=== PATIENT | female | born 1955 | race Caucasian/White ===

== ENCOUNTER 2016-07-01 13:17 | Emergency (ER) | payer MEDICAID ==
[~2016-07-01] VITALS: Ht 162.6 cm; Wt 61.2 kg
[~2016-07-01 13:17] MED LIST: ACHD5005 PO; ALBU8.5H4 IH; AMIT75TA2 PO; AZIT-21 PO; CYCL10TA9 PO; DIAZ-345 PO; DIAZ10TA PO; DOXE10CA PO; HYDR-34 PO; HYDR-3583 PO; HYDR1CAP2 PO; NAPR-243 PO; OXYC-12 PO; PARO20TA57 PO; PARO40TA PO; PARO40TA47 PO; PRD20T PO; SULF1TAB38 PO; TRAZ150T42 PO
--- NOTE | 2016-07-01 13:59 | Diagnostic Imaging Report ---
EXAMINATION: PA and lateral views of the chest. INDICATION: Left rib pain. FINDINGS: The lungs appear hyperinflated with bibasilar atelectasis. The heart size is normal. No effusion or pneumothorax is seen. An old posterolateral left 8th rib fracture is seen. There is mild right convexity scoliosis in the thoracic spine. An anchor at the right humeral head is seen. IMPRESSION: COPD. Bibasilar atelectasis. Dictated by: Dictated on workstation # [id number]
--- NOTE | 2016-07-01 14:14 | ED Chest Pain ---
General Chief Complaint: Chest Wall/Rib Pain Stated Complaint: SOA Nursing Triage Note: Pt noticed left lower chest wall pain after having sex last night. Pt reports having intercourse in missionary position on the hard floor. Hx of COPD. Nursing Sepsis Screen: No Definite Risk Source: patient History of Present Illness Time seen by provider: 13:40 Initial Comments C/O LEFT RIB PAIN SINCE 2300 LAST PM STATES SHE AND WERE HAVING INTERCOURSE ON THE FLOOR LAST PM AND AFTERWARD, BEGAN TO HAVE SEVERE PAIN IN LEFT LOWER RIB AREA NO SHORTNESS OF BREATH, JUST HURTS TO BREATHE HAS COPD AND HAS HAD "POPPED AND PULLED RIBS" FROM COUGHING, MOVING, ETC IN THE PAST HAD SAME THING LAST WEEK ON THE RIGHT SIDE AND WENT TO [facility] AND WAS GIVEN RX FOR TRAMADOL, PT STATES IT DID NOT HELP AT ALL. HAS NOT TAKEN ANYTHING FOR PAIN TODAY PCP:[facility] Allergies and Home Medications Allergies Coded Allergies: Penicillins (Unverified Allergy, Mild, 11/28/08) Home Medications Lidocaine 1 Each Adh..patch, 1 EACH TP DAILY PRN, #7 Prescribed by: OVIDIO LR on 07/01/16 1416 Methylprednisolone 4 Mg Tab.ds.pk, 4 MG PO UD, #1 Prescribed by: OVIDIO LR on 07/01/16 1416 Paroxetine HCl 40 Mg Tablet, 40 MG PO DAILY, #30 Ref 0 Prescribed by: KARLI MURDOCK on 11/25/15 1454 Review of Systems Constitutional: no symptoms reported EENTM: No Symptoms Reported Respiratory: See HPI Cardiovascular: See HPI, Chest Pain Gastrointestinal: No Symptoms Reported Genitourinary: No Symptoms Reported Musculoskeletal: see HPI, No back pain Skin: no symptoms reported Psychiatric/Neurological: No Symptoms Reported Endocrine: No Symptoms Reported Hematologic/Lymphatic: No Symptoms Reported Past Avlhjjk-Klhtyb-Pkitkf Hx Patient Social History Alcohol Use: Rarely Uses Recreational Drug Use: No Smoking Status: Current Everyday Smoker Type Used: Cigarettes Recent Foreign Travel: No Contact w/Someone Who Travel: No Recent Infectious Disease Expo: No Recent Hopitalizations: Yes Immunizations Up To Date Date of Pneumonia Vaccine: Nov 03, 2011 Date of Influenza Vaccine: Nov 03, 2011 Surgeries HX Surgeries: Yes (RIGHT ROTATOR CUFF REPAIR; LEFT KNEE SCOPE X 2) Surgeries: Appendectomy, Hysterectomy, Orthopedic Respiratory Hx Respiratory Disorders: Yes Respiratory Disorders: Chronic Bronchitis, COPD Cardiovascular Hx Cardiac Disorders: No Neurological Hx Neurological Disorders: Yes Neurological Disorders: Headaches /Migraines Reproductive System Hx Reproductive Disorders: No Genitourinary Hx Genitourinary Disorders: No Gastrointestinal Hx Gastrointestinal Disorders: Yes (DIARRHEA) Gastrointestinal Disorders: Chronic Diarrhea Musculoskeletal Hx Musculoskeletal Disorders: Yes ([id number]; RIGHT ROTATOR CUFF SURGERY; LEFT KNEE SCOPE X 2) Musculoskeletal Disorders: Arthritis Endocrine Hx Endocrine Disorders: No HEENT HX ENT Disorders: Yes (ONLY HAS 8 TEETH) Cancer Hx Cancer: No Psychosocial Hx Psychiatric Problems: Yes Behavioral Health Disorders: Anxiety Integumentary HX Skin/Integumentary Disorder: Yes (CELLULITIS OF LEGS) Blood Transfusions Hx Blood Disorders: No Physical Exam Vital Signs Vital Sign - Last 12Hours 07/01/16 13:44 Temp 97.5 Pulse 78 B/P (MAP) 137/65 O2 Delivery Room Air Capillary Refill : Less Than 3 Seconds General Appearance: WD/WN, Anxious, Other (SOMEWHAT DRAMATIC, HOLDING RIGHT LOWER RIB AREA) HEENT: Other (POOR DENTITION, MULTIPLE MISSING TEETH) Neck: Normal Inspection Respiratory: Normal Breath Sounds, No Accessory Muscle Use, No Respiratory Distress, Other (SPLINTING LEFT LOWER RIBS--VERY TENDER TO LEFT LOWER/ANTERIOR CHEST/RIB AREA. NO EXTERNAL EVIDENCE OF TRAUMA. NO CREPITANCE OR SUB Q AIR) Cardiovascular: Regular Rate, Rhythm, No Edema, No Murmur, Normal Peripheral Pulses Gastrointestinal: No Pulsatile Mass, Non Tender, Soft Extremity: Normal Inspection Neurologic/Psychiatric: Alert, Oriented x3, No Motor/Sensory Deficits, property administrator II- XII Norm as Tested Skin: Normal Color, Warm/Dry, No Rash, Other (NO EXTERNAL EVIDENCE OF TRAUMA) Progress/Results/Core Measures Results/Orders My Orders Orders - OVIDIO LR DO Chest Pa/Lat (2 View) (07/01/16 13:41) Ketorolac Injection (Toradol Injection) (07/01/16 14:15) Vital Signs/I&O Vital Sign - Last 12Hours 07/01/16 13:44 Temp 97.5 Pulse 78 B/P (MAP) 137/65 O2 Delivery Room Air Blood Pressure Mean: 89 Diagnostic Imaging Comments CXR--OLD LEFT 8TH RIB FRACTURE, PER RADIOLOGIST REPORT @ 1404 Reviewed: Reviewed by Me Departure Impression Impression: Primary Impression: Left-sided chest wall pain Additional Impressions: Contusion of rib on left side COPD (chronic obstructive pulmonary disease) Disposition: HOME, SELF-CARE Condition: Stable Departure-Patient Inst. Referrals: [facility] (PCP/Family) Primary Care Physician Patient Instructions: Bruised Rib (DC), COPD Including Emphysema (DC) Add. Discharge Instructions: ALTERNATE ICE AND HEAT TO SORE AREA AT 20 MINUTE INTERVALS ACTIVITIES TOLERATED FOLLOW UP WITH [facility] IN 1 WEEK IF NO BETTER All discharge instructions reviewed with patient and/or family. Voiced understanding. Scripts Lidocaine (Lidocaine) 1 Each Adh..patch 1 EACH TP DAILY PRN, #7 PATCH Prov: OVIDIO LR DO 07/01/16 Methylprednisolone (Medrol) 4 Mg Tab.ds.pk 4 MG PO UD, #1 PKG Prov: OVIDIO LR DO 07/01/16 OVIDIO LR DO July 01, 2016 14:14
[2016-07-01] MEDS ORDERED: KETOROLAC 60 MG/2 ML VIAL IM ONE (14:15)
[2016-07-01] MEDS ORDERED: METH4TAB PO (14:16)
[2016-07-01] MEDS ORDERED: LIDO700A45 TP (14:16)
[2016-07-01 14:30] VITALS: BP 132/60
== END 2016-07-01 14:30 | disposition home or self-care (01) ==
LOC: EDUNIT# 13:17 → ER 13:18
DX: S20.212A Contusion of left front wall of thorax, initial encounter (principal); J44.9 Chronic obstructive pulmonary disease, unspecified; F17.210 Nicotine dependence, cigarettes, uncomplicated; W50.0XXA Accidental hit or strike by another person, initial encounter; Y92.009 Unspecified place in unspecified non-institutional (private) residence as the place of occurrence of the external cause; Y99.8 Other external cause status
CPT/HCPCS: 71020; 96372; 99283

== ENCOUNTER → 2016-07-07 | Outpatient (CLI) | payer MEDICAID ==
[~2016-07-07] MED LIST changes: +LIDO700A45 TP; +METH4TAB PO
--- NOTE | 2016-07-08 08:30 | Diagnostic Imaging Report ---
Bilateral screening mammogram The current study was also evaluated with a Computer Aided Detection (CAD) system. Indication: Screening. No current complaints stated on the questionnaire. COMPARISON: 01/06/10. FINDINGS: The breasts are composed of heterogeneously dense parenchyma which may decrease mammographic sensitivity. There is no mass, architectural distortion or suspicious cluster of calcification. Allowing for technique and positional differences, no suspicious change is seen. IMPRESSION: No significant change. ACR BI-RADS Category 2: Benign findings. Result letter will be mailed to the patient. Note: At least 10% of breast cancer is not imaged by mammography. Dictated by: Dictated on workstation # [id number]
== END ==
LOC: RAD 13:38
PROVIDERS: ATTEND Nurse Practitioner Community Health
DX: Z12.31 Encounter for screening mammogram for malignant neoplasm of breast (principal)
CPT/HCPCS: 77067

== ENCOUNTER 2016-09-22 15:38 | Emergency (ER) | payer MEDICAID ==
[~2016-09-22] VITALS: Ht 160 cm; Wt 72.6 kg
[2016-09-22] MEDS ORDERED: HYDROcodone/APAP 7.5 MG/325 MG (LORTAB, LORCET PLUS) TABLET PO STA (15:53)
--- NOTE | 2016-09-22 15:57 | ED Upper Extremity ---
General Chief Complaint: Upper Extremity Stated Complaint: R SHOULDER INJ - FALL History of Present Illness Time seen by provider: 15:45 Initial Comments Patient tripped over an extension cord in her home, fell on an extended right arm. She's had previous rotator cuff surgery by Dr. Monsivais on the shoulder, 11-09. Onset: just prior to arrival Pain/Injury Location: right shoulder Method of Injury: fell Modifying Factors: Improves With Immobilization, Improves With Rest Allergies and Home Medications Allergies Coded Allergies: Penicillins (Unverified Allergy, Mild, 11/28/08) Home Medications Paroxetine HCl 40 Mg Tablet, 40 MG PO DAILY, #30 Ref 0 Prescribed by: KARLI MURDOCK on 11/25/15 8097 Constitutional: no symptoms reported, see HPI Respiratory: no symptoms reported, see HPI Cardiovascular: no symptoms reported, see HPI Musculoskeletal: see HPI, joint pain (right shoulder), muscle pain Psychiatric/Neurological: No Symptoms Reported, See HPI All Other Systems Reviewed Negative Unless Noted: Yes Past Zrhojdl-Rlavsp-Xpzscj Hx Patient Social History Alcohol Use: Denies Use Recreational Drug Use: No Smoking Status: Current Everyday Smoker Type Used: Cigarettes Recent Foreign Travel: No Contact w/Someone Who Travel: No Recent Hopitalizations: Yes Immunizations Up To Date Date of Pneumonia Vaccine: Nov 03, 2011 Date of Influenza Vaccine: Nov 03, 2011 Surgeries HX Surgeries: Yes (RIGHT ROTATOR CUFF REPAIR; LEFT KNEE SCOPE X 2) Surgeries: Appendectomy, Hysterectomy, Orthopedic Respiratory Hx Respiratory Disorders: Yes Respiratory Disorders: Chronic Bronchitis, COPD Cardiovascular Hx Cardiac Disorders: No Neurological Hx Neurological Disorders: Yes Neurological Disorders: Headaches /Migraines Reproductive System Hx Reproductive Disorders: No Genitourinary Hx Genitourinary Disorders: No Gastrointestinal Hx Gastrointestinal Disorders: Yes (DIARRHEA) Gastrointestinal Disorders: Chronic Diarrhea Musculoskeletal Hx Musculoskeletal Disorders: Yes ([id number]; RIGHT ROTATOR CUFF SURGERY; LEFT KNEE SCOPE X 2) Musculoskeletal Disorders: Arthritis Endocrine Hx Endocrine Disorders: No HEENT HX ENT Disorders: Yes (ONLY HAS 8 TEETH) Cancer Hx Cancer: No Psychosocial Hx Psychiatric Problems: Yes Behavioral Health Disorders: Anxiety Integumentary HX Skin/Integumentary Disorder: Yes (CELLULITIS OF LEGS) Blood Transfusions Hx Blood Disorders: No Reviewed Nursing Assessment Reviewed/Agree w Nursing PMH: Yes Physical Exam Vital Signs Vital Sign - Last 12Hours 09/22/16 15:50 Temp 98.1 Pulse 100 Resp 18 B/P (MAP) 143/97 Pulse Ox 95 Capillary Refill : General Appearance: WD/WN, no apparent distress Neck: non-tender, full range of motion, supple, normal inspection Cardiovascular: normal peripheral pulses, regular rate, rhythm, no murmur Respiratory: chest non-tender, lungs clear, normal breath sounds, no respiratory distress Back: normal inspection, no vertebral tenderness Shoulder: normal inspection, bone tenderness (proximal humerus), limited ROM, soft tissue tenderness (anterior right shoulder) Elbow/Forearm: normal inspection, non-tender, no evidence of injury, normal ROM , Right Wrist: Yes normal inspection, Yes non-tender, Yes no evidence of injury, Yes normal ROM Hand: normal inspection, non-tender, no evidence of injury, normal ROM, Right Neurologic/Psychiatric: no motor/sensory deficits, alert, normal mood/affect, oriented x 3 Skin: normal color, warm/dry Comments Exam of right shoulder showed limitation of motion secondary to pain, active elevation to 90 passive elevation to 100. Limited internal and neck sternal rotation of the shoulder. Negative apprehension maneuver negative Eyal sign, pain with impingement maneuver. No before meals joint tenderness and no pain in that area with cross body adduction. Biceps and triceps resisted strength V/V. pain with resisted external rotation. Progress/Results/Core Measures Results/Orders My Orders Orders - INES GUERRERO Shoulder, Right, 3 Views (09/22/16 15:53) Hydrocodone/Apap 7.5/325 Tab (Lortab 7. (09/22/16 15:53) Vital Signs/I&O Vital Sign - Last 12Hours 09/22/16 09/22/16 15:50 16:45 Temp 98.1 98.2 Pulse 100 87 Resp 18 16 B/P (MAP) 143/97 Pulse Ox 95 99 Progress Note : Time: 15:45 Progress Note Initial evaluation completed, we'll obtain x-rays of the right shoulder, hydrocodone 7.5/APAP 325mg one by mouth for pain. Will reevaluate. 1630 x-ray results reviewed with the patient no acute injuries noted. Sling applied to the right shoulder. Explained importance of removing the sling several times a day for gentle range of motion to the shoulder. Demonstrated exercises for the patient. She verbalized understanding of discharge instructions. All questions answered. Diagnostic Imaging Diagonstic Imaging: Xray Plain Films/CT/US/NM/MRI: other Comments NAME: DENIA TRINIDAD [facility] REC#: [id number] PT STATUS: REG ER : 1955 PHYSICIAN: INES GUERRERO ADMIT DATE: 09/22/16/ER Draft Date of Exam:09/22/16 SHOULDER, RIGHT, 3 VIEWS INDICATION: Fall. Pain. COMPARISON: None. FINDINGS: Four views of the right shoulder are obtained. No acute fracture, malalignment, or osseous destructive process is seen. The glenohumeral joint appears unremarkable. There are mild degenerative changes in the acromioclavicular joint. There are postoperative changes of the distal clavicle and in the humeral head. There are old healed lateral right rib fractures. IMPRESSION: No acute abnormality is seen. Degenerative and postoperative changes as described. Dictated on workstation # [id number] Dict: 09/22/16 1615 Trans: 09/22/16 1620 [facility] [id number] Interpreted by: HECTOR MIRANDA DO Electronically signed by: Reviewed: Reviewed by Me Departure Impression Impression: Primary Impression: Pain in right shoulder Qualified Codes: M25.511 - Pain in right shoulder Additional Impression: Fall Qualified Codes: W19.XXXA - Unspecified fall, initial encounter Disposition: 01 HOME, SELF-CARE Condition: Stable Departure-Patient Inst. Decision time for Depature: 16:20 Referrals: [facility] (PCP) Primary Care Physician ZAMZAM MORAES (Family) Primary Care Physician Patient Instructions: Shoulder Pain (DC) Add. Discharge Instructions: Ice to right shoulder 20 minutes 3-4 times a day. Ibuprofen 600 mg every 8 hours and/or Tylenol 650 mg every 6 hours. Gentle range of motion to the right shoulder. Follow-up with Dr. Monsivais if symptoms are continuing after 3-4 days. Return to emergency department if symptoms worsen. All discharge instructions reviewed with patient and/or family. Voiced understanding. Copy Copies To 1: IGGY MONSIVAIS MD Copies To 2: BECKY DUMONT MD, AMY ARNP Sep 22, 2016 15:57
--- NOTE | 2016-09-22 16:20 | Diagnostic Imaging Report ---
INDICATION: Fall. Pain. COMPARISON: None. FINDINGS: Four views of the right shoulder are obtained. No acute fracture, malalignment, or osseous destructive process is seen. The glenohumeral joint appears unremarkable. There are mild degenerative changes in the acromioclavicular joint. There are postoperative changes of the distal clavicle and in the humeral head. There are old healed lateral right rib fractures. IMPRESSION: No acute abnormality is seen. Degenerative and postoperative changes as described. Dictated by: Dictated on workstation # [id number]
[2016-09-22 16:45] VITALS: BP 120/78
== END 2016-09-22 16:45 | disposition home or self-care (01) ==
LOC: EDUNIT# 15:38 → ER 15:40
DX: M25.511 Pain in right shoulder (principal); J44.9 Chronic obstructive pulmonary disease, unspecified; G43.909 Migraine, unspecified, not intractable, without status migrainosus; K52.9 Noninfective gastroenteritis and colitis, unspecified; M19.90 Unspecified osteoarthritis, unspecified site; F41.9 Anxiety disorder, unspecified; F17.210 Nicotine dependence, cigarettes, uncomplicated; Z90.710 Acquired absence of both cervix and uterus; Z90.49 Acquired absence of other specified parts of digestive tract; Z98.890 Other specified postprocedural states; W19.XXXA Unspecified fall, initial encounter
CPT/HCPCS: 73030; 99283

== ENCOUNTER 2021-09-24 11:24 | Emergency (ER) | payer MEDICAID ==
[~2021-09-24] VITALS: Ht 160 cm; Wt 68.0 kg
--- NOTE | 2021-09-24 12:00 | ED Respiratory ---
General Chief Complaint: Respiratory Problems Stated Complaint: R RIB PAIN,SOB Source: patient Exam Limitations: no limitations History of Present Illness Date Seen by Provider: Sep 24, 2021 Time Seen by Provider: 11:57 Initial Comments Patient is a 66-year-old female presents ED with right-sided rib pain. Patient states she fell 2 days ago while cleaning the bathtub. She landed on her right ribs. Since then she has been having right rib pain with shortness of breath. She has been using a brace for support without much improvement. She is tachycardic. Started having numbness and tingling into her hands while sitting in the waiting room. She denies falling hitting her head or loss of consciousness. Patient is not on blood thinners. She has been taking aspirin. Denies history of coronary artery disease. Does have a history of COPD and has been using her breathing treatments. She denies any headache, visual changes, abdominal pain, vomiting, diarrhea. Did have some back pain after the fall but no back pain today. Denies of any neck pain. No muscle weakness, visual disturbances, cough. Allergies and Home Medications Allergies Coded Allergies: Penicillins (Unverified Allergy, Mild, 11/28/08) Patient Home Medication List Home Medication List Reviewed: Yes Hydrocodone/Acetaminophen (Hydrocodone-Acetamin 5-325 mg) 5 Mg-325 Mg Tablet, 1 TAB PO Q4H PRN for PAIN-MODERATE (5-7) Prescribed by: ABDIAZIZ CASTANEDA on 09/24/21 1343 Nirmatrelvir/Ritonavir (Paxlovid Co-Pack (Eua)) 150 Mg X 2-100 Mg Tablet, 1 EACH PO UD Prescribed by: ABDIAZIZ CASTANEDA on 09/24/21 1342 Paroxetine HCl (Paxil) 40 Mg Tablet, 40 MG PO DAILY Prescribed by: KARLI MURDOCK on 11/25/15 1454 Review of Systems Review of Systems Constitutional: No chills, No diaphoresis EENTM: No blurred vision, No double vision Respiratory: No cough; short of breath; No stridor, No wheezing Cardiovascular: chest pain Gastrointestinal: No abdominal pain, No diarrhea, No nausea, No vomiting Musculoskeletal: back pain; No joint pain; muscle pain, muscle stiffness Skin: No change in color All Other Systems Reviewed Negative Unless Noted: Yes Past Qsjxwxz-Xguepp-Ycxyme Hx Past Medical History Surgeries: Yes Appendectomy, Hysterectomy, Orthopedic Respiratory: Yes Chronic Bronchitis, COPD Cardiac: No Neurological: No Headaches /Migraines Reproductive Disorders: No Genitourinary: No Gastrointestinal: No (DIARRHEA) Chronic Diarrhea Musculoskeletal: Yes Arthritis Endocrine: No Cancer: No Psychosocial: Yes Anxiety Integumentary: Yes (CELLULITIS OF LEGS) Blood Disorders: No Physical Exam Vital Signs - First Documented 09/24/21 11:53 Temp 37.5 Pulse 125 Resp 26 B/P (MAP) 139/74 (95) Pulse Ox 94 O2 Delivery Room Air Capillary Refill : Height: 5'3.00" Weight: 160lbs. oz. 72.863886ix; BMI Method:Stated General Appearance: WD/WN, no apparent distress Eyes: Bilateral Eye Normal Inspection, Bilateral Eye PERRL, Bilateral Eye EOMI HEENT: PERRL/EOMI, normal ENT inspection, TMs normal, pharynx normal Neck: non-tender, full range of motion, supple Respiratory: lungs clear, other (Right-sided lateral rib tenderness. No crepitus or step-off. 1 cm bilateral. No significant bruising or swelling.) Cardiovascular: no gallop, no JVD, tachycardia Gastrointestinal: normal bowel sounds, non tender, soft, no organomegaly Extremities: normal range of motion, non-tender, normal inspection, no pedal edema Neurologic/Psychiatric: vehicle body maker II-XII nml as tested, no motor/sensory deficits, normal mood/affect, oriented x 3 Skin: normal color, warm/dry Progress/Results/Core Measures Suspected Sepsis SIRS Temperature: Pulse: Respiratory Rate: Laboratory Tests 09/24/21 12:00: White Blood Count 8.6 Blood Pressure / Mean: Laboratory Tests 09/24/21 12:00: Creatinine 0.97, Platelet Count 165, Total Bilirubin 0.1 Results/Orders Lab Results Laboratory Tests Test 09/24/21 12:00 09/24/21 12:04 Range/Units White Blood Count 8.6 4.3-11.0 10^3/uL Red Blood Count 5.43 H 3.80-5.11 10^6/uL Hemoglobin 14.8 11.5-16.0 g/dL Hematocrit 45 35-52 % Mean Corpuscular Volume 83 80-99 fL Mean Corpuscular Hemoglobin 27 25-34 pg Mean Corpuscular Hemoglobin Concent 33 32-36 g/dL Red Cell Distribution Width 14.7 H 10.0-14.5 % Platelet Count 165 130-400 10^3/uL Mean Platelet Volume 10.7 9.0-12.2 fL Immature Granulocyte % (Auto) 1 % Neutrophils (%) (Auto) 73 42-75 % Lymphocytes (%) (Auto) 17 12-44 % Monocytes (%) (Auto) 9 0-12 % Eosinophils (%) (Auto) 0 0-10 % Basophils (%) (Auto) 0 0-10 % Neutrophils # (Auto) 6.3 1.8-7.8 10^3/uL Lymphocytes # (Auto) 1.5 1.0-4.0 10^3/uL Monocytes # (Auto) 0.8 0.0-1.0 10^3/uL Eosinophils # (Auto) 0.0 0.0-0.3 10^3/uL Basophils # (Auto) 0.0 0.0-0.1 10^3/uL Immature Granulocyte # (Auto) 0.0 0.0-0.1 10^3/uL Sodium Level 137 135-145 MMOL/L Potassium Level 3.7 3.6-5.0 MMOL/L Chloride Level 105 98-107 MMOL/L Carbon Dioxide Level 20 L 21-32 MMOL/L Anion Gap 12 5-14 MMOL/L Blood Urea Nitrogen 21 H 7-18 MG/DL Creatinine 0.97 0.60-1.30 MG/DL Estimat Glomerular Filtration Rate 64 BUN/Creatinine Ratio 22 Glucose Level 124 H 70-105 MG/DL Calcium Level 8.9 8.5-10.1 MG/DL Corrected Calcium 9.3 8.5-10.1 MG/DL Total Bilirubin 0.1 0.1-1.0 MG/DL Aspartate Amino Transf (AST/SGOT) 19 5-34 U/L Alanine Aminotransferase (ALT/SGPT) 18 0-55 U/L Alkaline Phosphatase 83 40-136 U/L Troponin I < 0.028 <0.028 NG/ML B-Type Natriuretic Peptide 120.6 H <100.0 PG/ML Total Protein 6.7 6.4-8.2 GM/DL Albumin 3.5 3.2-4.5 GM/DL Influenza Type A (RT-PCR) Not Detected Not Detecte Influenza Type B (RT-PCR) Not Detected Not Detecte SARS-CoV-2 RNA (RT-PCR) Detected H Not Detecte My Orders Orders - LEROY NICHOLE Ekg Tracing (09/24/21 11:28) Cbc With Automated Diff (09/24/21 11:55) Comprehensive Metabolic Panel (09/24/21 11:55) Troponin I Joanie (09/24/21 11:55) Bnp [place] (09/24/21 11:55) Ct Chest W (09/24/21 11:55) Iv/Invasive Line Insertion .IV start (09/24/21 11:55) Hydrocodone/Apap 5/325 Tablet (Lortab 5 (09/24/21 12:15) Covid 19 Inhouse Test (09/24/21 12:12) Influenza A And B By Pcr (09/24/21 12:12) Iohexol Injection (Omnipaque 350 Mg/Ml 1 (09/24/21 13:00) Received Contrast (Hold Metformin- Contr (09/24/21 13:00) Ns (Ivpb) (Sodium Chloride 0.9% Ivpb Bag (09/24/21 13:00) Medications Given in ED Current Medications Medications Dose Ordered Sig/Kim Route Start Time Stop Time Status Last Admin Dose Admin Acetaminophen/ Hydrocodone Bitart 1 ea ONCE ONCE PO 09/24/21 12:15 09/24/21 12:16 DC 09/24/21 12:22 1 EA Iohexol 100 ml ONCE ONCE IV 09/24/21 13:00 09/24/21 13:03 DC 09/24/21 13:16 74 ML Sodium Chloride 100 ml ONCE ONCE IV 09/24/21 13:00 09/24/21 13:03 DC 09/24/21 13:16 80 ML Vital Signs/I&O 09/24/21 09/24/21 11:53 13:50 Temp 37.5 Pulse 125 94 Resp 26 20 B/P (MAP) 139/74 (95) 124/67 Pulse Ox 94 97 O2 Delivery Room Air Room Air Capillary Refill : ECG Comment Sinus tachycardia with occasional supraventricular premature complexes, 125 bpm, QRS duration 84 MS, QTc 368 MS Departure Communication (PCP) Patient presents ED with right-sided rib pain after a fall. She is not on blood thinners denies hit her head. Pain with deep inspiration. She reports numbness and tingling to her hands. Concerning she may be hyperventilating. She was tachycardic. Due to tachycardia and the tingling lab work and cardiac work-up was ordered. Normal troponin. Slight elevated BNP at 120. Lab work was otherwise unremarkable. CT scan of the chest shows a nondisplaced right lateral rib fracture. No pneumothorax. History of COPD has been doing breathing treatments at home. Will discharge with spirometer. Was given dose of pain medication here. She states she has been feeling feverish, chills, body aches over the past few days. COVID-positive. She has agreed to the Paxlovid. Discussed potential side effects. She agrees and request to proceed. Patient does not appear toxic or septic. Patient was when he be discharged. Discharged with pain medication. We recommend returning back to ED if symptoms worsen such as chest pain or shortness of breath. She was not hypoxic. Pain improved as well as her heart rate improved after pain was controlled. Return precaution were discussed with patient Impression Primary Impression: Rib fracture Additional Impression: COVID-19 Disposition: 01 HOME, SELF-CARE Condition: Stable Departure-Patient Inst. Decision time for Depature: 13:38 Referrals: [facility] (PCP) Primary Care Physician ZAMZAM MORAES (Family) Primary Care Physician Patient Instructions: Rib Fracture or Bruised Rib ED, COVID-19 ED Scripts Hydrocodone/Acetaminophen (Hydrocodone-Acetamin 5-325 mg) 5 Mg-325 Mg Tablet 1 TAB PO Q4H PRN for PAIN-MODERATE (5-7), #8 TAB Prov: LEROY NICHOLE 09/24/21 Nirmatrelvir/Ritonavir (Paxlovid Co-Pack (Eua)) 150 Mg X 2-100 Mg Tablet 1 EACH PO UD for 5 Days, #1 EACH Prov: LEROY NICHOLE 09/24/21 LEROY NICHOLE Sep 24, 2021 12:00
[2021-09-24 12:12] LABS: BASOPHILS % (AUTO) 0 % (0-10); EOSINOPHILS % (AUTO) 0 % (0-10); HEMATOCRIT 45 % (35-52); HEMOGLOBIN 14.8 g/dL (11.5-16.0); LYMPHOCYTES # (AUTO) 1.5 10^3/uL (1.0-4.0); LYMPHOCYTES % (AUTO) 17 % (12-44); MEAN CORPUSCULAR HEMOGLOBIN 27 pg (25-34); MEAN CORPUSCULAR HGB CONC 33 g/dL (32-36); MEAN CORPUSCULAR VOLUME 83 fL (80-99); MEAN PLATELET VOLUME 10.7 fL (9.0-12.2); MONOCYTES # (AUTO) 0.8 10^3/uL (0.0-1.0); MONOCYTES % (AUTO) 9 % (0-12); NEUTROPHILS # (AUTO) 6.3 10^3/uL (1.8-7.8); NEUTROPHILS % (AUTO) 73 % (42-75); PLATELET COUNT 165 10^3/uL (130-400); WHITE BLOOD COUNT 8.6 10^3/uL (4.3-11.0)
[2021-09-24] MEDS ORDERED: HYDROcodone/APAP 5 MG/325 MG (LORTAB) TAB PO ONE (12:15)
[2021-09-24 12:31] LABS: ALBUMIN 3.5 GM/DL (3.2-4.5); CHLORIDE 105 MMOL/L (98-107); POTASSIUM 3.7 MMOL/L (3.6-5.0); SODIUM 137 MMOL/L (135-145)
[2021-09-24 12:32] LABS: CALCIUM 8.9 MG/DL (8.5-10.1)
[2021-09-24 12:33] LABS: GLUCOSE 124 MG/DL (70-105); TOTAL PROTEIN 6.7 GM/DL (6.4-8.2)
[2021-09-24 12:34] LABS: CARBON DIOXIDE 20 MMOL/L (21-32)
[2021-09-24 12:35] LABS: BILIRUBIN,TOTAL 0.1 MG/DL (0.1-1.0)
[2021-09-24 12:37] LABS: ALKALINE PHOSPHATASE 83 U/L (40-136); CREATININE SERUM 0.97 MG/DL (0.60-1.30); GFR ESTIMATED 64
[2021-09-24 12:38] LABS: BUN/CREATININE RATIO 22
[2021-09-24 12:40] LABS: ALANINE AMINOTRANSFERASE 18 U/L (0-55)
[2021-09-24] MEDS ORDERED: IOHEXOL 350 MG/ML 100 ML (OMNIPAQUE 350) VIAL IV ONE (13:00)
[2021-09-24] MEDS ORDERED: HOLD METFORMIN - RECEIVED CONTRAST 20 ML VIAL IV SCH (13:00)
[2021-09-24] MEDS ORDERED: NS 100 ML (IVPB) BAG IV ONE (13:00)
--- NOTE | 2021-09-24 13:29 | Diagnostic Imaging Report ---
PROCEDURE: CT chest with contrast only. TECHNIQUE: Multiple contiguous axial images were obtained through the chest after administration of intravenous contrast. Auto Exposure Controls were utilized during the CT exam to meet ALARA standards for radiation dose reduction. INDICATION: Fall with COPD and right rib pain. FINDINGS: There is mild linear atelectasis and/or scarring in the anterior aspect of the right upper lobe. There is no evidence of pneumothorax or focal pulmonary contusion. No significant pleural or pericardial fluid is identified. Coronary artery calcifications are noted. There are mildly prominent mediastinal lymph nodes with the largest lymph node in the precarinal space measuring 2.4 x 1.0 cm. There is aortic ectasia with the descending thoracic aorta reaching 3.4 cm in maximal diameter. There is calcification at the level of the aortic arch with inferior projecting fusiform aneurysm of the aorta measuring 1.7 cm in diameter and 0.9 cm in thickness in the region of ligamentum arteriosus. There is an approximately 2.0 x 1.1 cm low-density nodule in the right lobe of the thyroid gland. There is a nondisplaced fracture along the lateral margin of the right 8th rib. There is no significant pleural reaction. No other acute fracture is seen. IMPRESSION: Nondisplaced lateral right 8th rib fracture; otherwise, no definite acute abnormality is seen within the thorax. There are mildly prominent mediastinal lymph nodes with atherosclerosis and thoracic aortic ectasia. There is no pulmonary contusion or hemothorax. Dictated by: Dictated on workstation # [id number]
[2021-09-24] MEDS ORDERED: NIRM1TAB PO (13:42)
[2021-09-24] MEDS ORDERED: ACHD5005 PO (13:42)
[2021-09-24 13:50] VITALS: BP 124/67
== END 2021-09-24 13:52 | disposition home or self-care (01) ==
LOC: EDUNIT# 11:24 → ER 11:26
DX: U07.1 COVID-19 (principal); S22.32XA Fracture of one rib, left side, initial encounter for closed fracture; R00.0 Tachycardia, unspecified; R79.89 Other specified abnormal findings of blood chemistry; Z79.82 Long term (current) use of aspirin; W18.30XA Fall on same level, unspecified, initial encounter; Y93.E5 Activity, floor mopping and cleaning
CPT/HCPCS: 36415; 71260; 80053; 83880; 84484; 85025; 87636; 93005; 94640

== ENCOUNTER → 2021-12-26 | Outpatient (CLI) | payer MEDICAID ==
[~2021-12-26] MED LIST changes: +NIRM1TAB PO
== END ==
LOC: CARD 12:00
PROVIDERS: ATTEND Internal Medicine Cardiovascular Disease
DX: I35.1 Nonrheumatic aortic (valve) insufficiency (principal); I10 Essential (primary) hypertension; I25.10 Atherosclerotic heart disease of native coronary artery without angina pectoris
CPT/HCPCS: 93306

== ENCOUNTER → 2022-01-20 | Outpatient (CLI) | payer MEDICAID ==
[~2022-01-20] MED LIST changes: +CATHETER FLUSH 10 ML SYR IVP PRN; +REGADENOSON 0.4 MG/5 ML SYR (LEXISCAN) IV NR; +REGADENOSON 0.4 MG/5 ML SYR (LEXISCAN) IV ONE
[2022-01-20 08:03] VITALS: BP 150/81
--- NOTE | 2022-01-21 08:13 | Cardiology Stress Test Report ---
Stress Test Report Date of Procedure/Referring: Date of Procedure: Jan 20, 2022 [facility] Admitting Physician Admitting Physician: Attending Physician: Deloris Gonzalez MD Baseline Heart Rate: 76 Baseline Blood Pressure: Blood Pressure Systolic: 150 Blood Pressure Diastolic: 81 Baseline Vitals Vital Signs Date Time Temp Pulse Resp B/P (MAP) Pulse Ox O2 Delivery O2 Flow Rate FiO2 01/20/22 08:03 76 150/81 (104) Baseline EKG: Baseline EKG: NSR Summary After explaining the procedure to the patient, she signed a consent and then brought to the stress nuclear laboratory. Patient received 0.4 mg Lexiscan for stress test, ECG, heart rate and blood pressure were monitored continuously. Resting and stress dose of radio tracer were injected, imaging was acquired and reviewed in short axis, horizontal long axis and vertical long axis views. TID: 1.11 SSS: 6 SDS: 4 EF: 58 1. Patient tolerated Lexiscan well 2. Breast attenuation with decreased uptake at the base of the anterior wall with mild reversibility, most probably secondary to breast attenuation, no significant ischemia or infarction on SPECT images were noted 3. Normal left ventricular size with normal contractility, ejection fraction 58% Copy Copies To 1: [facility]/ DELORIS GONZALEZ MD Jan 21, 2022 08:13
== END ==
LOC: CARD 07:00
PROVIDERS: ATTEND Internal Medicine Cardiovascular Disease
DX: I25.10 Atherosclerotic heart disease of native coronary artery without angina pectoris (principal); I10 Essential (primary) hypertension
CPT/HCPCS: 78452; 93017; A9502

== ENCOUNTER 2022-02-11 10:52 | Outpatient (CLI) | payer MEDICAID ==
[~2022-02-11] VITALS: Ht 160 cm; Wt 72.3 kg
[~2022-02-11 10:52] MED LIST changes: -CATHETER FLUSH 10 ML SYR IVP PRN; -REGADENOSON 0.4 MG/5 ML SYR (LEXISCAN) IV NR; -REGADENOSON 0.4 MG/5 ML SYR (LEXISCAN) IV ONE
[2022-02-18] MEDS ORDERED: ATOR20TA66 PO (16:35)
[2022-02-18] MEDS ORDERED: METO-351 PO (16:35)
== END 2022-02-18 16:40 | disposition home or self-care (01) ==
LOC: PREOP 10:52
PROVIDERS: ATTEND Specialist
DX: Z01.818 Encounter for other preprocedural examination (principal); H25.11 Age-related nuclear cataract, right eye

== ENCOUNTER 2022-02-20 10:45 | Day surgery (SDC) | payer MEDICAID ==
[~2022-02-20] VITALS: Ht 160 cm; Wt 72.3 kg
[~2022-02-20 10:45] MED LIST changes: +ATOR20TA66 PO; +METO-351 PO
[2022-02-20] MEDS ORDERED: MOXIFLOXACIN OPHTH SOLN 5 MG/ML 0.3 ML SYRINGE OP ONE (11:00)
[2022-02-20] MEDS ORDERED: TIMOLOL 0.5% (CATARACTS) 0.3 ML BTL OU PRN (11:00)
[2022-02-20] MEDS ORDERED: POVIDONE (BETADINE) OPHTH SOLN 5% 30 ML OP ONE (11:00)
[2022-02-20] MEDS: TETRACAINE 0.5% OPHTH SOLN 4 ML BTL (SINGLE DOSE ONLY) OU PRN ×4 (11:03→11:20)
[2022-02-20] MEDS: PHENYLEPHRINE 10% OPHTH (NEO-SYN) 5 ML BTL OU SCH ×3 (11:09→11:20)
[2022-02-20] MEDS: TROPICAMIDE 1% OPH SOLN (MYDRIACYL) 15 ML BTL OP SCH ×3 (11:09→11:20)
[2022-02-20 11:22] VITALS: BP 172/93
[2022-02-20] MEDS ORDERED: MIDAZOLAM 2 MG/2 ML (VERSED) VIAL ONE (11:57)
--- NOTE | 2022-02-20 12:06 | Ophthalmologist Pre-Op Note ---
Pre-Operative Progress Note H&P Reviewed The H&P was reviewed, patient examined and no changes noted. Date H&P Reviewed: Feb 20, 2022 Time H&P Reviewed: 12:06 Pre-Op Dx Cataract, Right Eye CARLI MERCADO MD Feb 20, 2022 12:06
--- NOTE | 2022-02-20 12:27 | Ophthalmology Operative Report ---
Cataract removal/placement IOL PREOPERATIVE DIAGNOSIS: Cataract Right Eye POSTOPERATIVE DIAGNOSIS: Cataract Right Eye PROCEDURE: Cataract removal and placement of posterior chamber implant, right eye SURGEON: Misbah Mercado ANESTHESIA: Topical with sedation COMPLICATIONS: None ESTIMATED BLOOD LOSS: Minimal DESCRIPTION OF PROCEDURE: After proper informed consent was obtained, the patient, a 66 female, was taken to the Operating Room and the right eye was anesthetized with tetracaine. The right eye was then prepped and draped in the usual manner. A wire lid speculum was placed. A paracentesis was made at the left hand position. Preservative free lidocaine was injected into the anterior chamber followed by viscoelastic. A clear corneal incision was made in the temporal position. A capsulorrhexis was preformed and the central nuclear and cortical material were removed. The posterior capsule was polished and Navdeep 22.0 AU00T0 IOL was placed into the capsular bag. The residual viscoelastic was aspirated and balanced saline solution was injected into the anterior chamber. Moxifloxacin was injected into the anterior chamber. The wound was checked and found to be water tight. The patient tolerated the procedure well without complications. MISBAH MERCADO MD Feb 20, 2022 12:27
[2022-02-20 12:31] VITALS: BP 149/68
--- NOTE | 2022-02-20 14:09 | Anesthesia-General Post-Op ---
MAC Patient Condition Mental Status/LOC: Same as Preop Cardiovascular: Satisfactory Nausea/Vomiting: Absent Respiratory: Satisfactory Pain: Controlled Complications: Absent Post Op Complications Complications None Follow Up Care/Instructions Patient Instructions None needed. Anesthesiology Discharge Order Discharge Order Patient was doing well after the procedure with no complaints, stable vital signs, no apparent adverse anesthesia problems. No complications reported per nursing. RAMANA JENNINGS DO Feb 20, 2022 14:09
== END 2022-02-20 12:33 | disposition home or self-care (01) ==
LOC: SDC 10:45
PROVIDERS: ATTEND Specialist
DX: H25.9 Unspecified age-related cataract (principal); F17.210 Nicotine dependence, cigarettes, uncomplicated
CPT/HCPCS: 66984; V2632

== ENCOUNTER 2022-03-06 08:55 | Day surgery (SDC) | payer MEDICAID ==
[~2022-03-06] VITALS: Ht 160 cm; Wt 72.3 kg
[~2022-03-06 08:55] MED LIST changes: +PARO-135 PO; -PARO40TA PO
[2022-03-06] MEDS ORDERED: MOXIFLOXACIN OPHTH SOLN 5 MG/ML 0.3 ML SYRINGE OP ONE (09:00)
[2022-03-06] MEDS ORDERED: POVIDONE (BETADINE) OPHTH SOLN 5% 30 ML OP ONE (09:00)
[2022-03-06] MEDS ORDERED: TIMOLOL 0.5% (CATARACTS) 0.3 ML BTL OU PRN (09:00)
[2022-03-06] MEDS: TETRACAINE 0.5% OPHTH SOLN 4 ML BTL (SINGLE DOSE ONLY) OU PRN ×4 (09:06→09:22)
[2022-03-06 09:10] VITALS: BP 120/68
[2022-03-06] MEDS: PHENYLEPHRINE 10% OPHTH (NEO-SYN) 5 ML BTL OU SCH ×3 (09:12→09:22)
[2022-03-06] MEDS: TROPICAMIDE 1% OPH SOLN (MYDRIACYL) 15 ML BTL OP SCH ×3 (09:12→09:22)
[2022-03-06] MEDS ORDERED: MIDAZOLAM 2 MG/2 ML (VERSED) VIAL ONE (09:36)
--- NOTE | 2022-03-06 09:45 | Ophthalmologist Pre-Op Note ---
Pre-Operative Progress Note H&P Reviewed The H&P was reviewed, patient examined and no changes noted. Date H&P Reviewed: Mar 06, 2022 Time H&P Reviewed: 09:45 Pre-Op Dx Cataract, Left Eye CARLI MERCADO MD Mar 06, 2022 09:45
[2022-03-06 10:09] VITALS: BP 144/71
--- NOTE | 2022-03-06 10:09 | Ophthalmology Operative Report ---
Cataract removal/placement IOL PREOPERATIVE DIAGNOSIS: Cataract Left Eye POSTOPERATIVE DIAGNOSIS: Cataract Left Eye PROCEDURE: Cataract removal and placement of posterior chamber implant, left eye SURGEON: Misbah Mercado ANESTHESIA: Topical with sedation COMPLICATIONS: None ESTIMATED BLOOD LOSS: Minimal DESCRIPTION OF PROCEDURE: After proper informed consent was obtained, the patient, a 66 female, was taken to the Operating Room and the left eye was anesthetized with tetracaine. The left eye was then prepped and draped in the usual manner. A wire lid speculum was placed. A paracentesis was made at the left hand position. Preservative free lidocaine was injected into the anterior chamber followed by viscoelastic. A clear corneal incision was made in the temporal position. A capsulorrhexis was preformed and the central nuclear and cortical material were removed. The posterior capsule was polished and an Navdeep 22.0 AU00T0 was placed into the capsular bag. The residual viscoelastic was aspirated and balanced saline solution was injected into the anterior chamber. Moxifloxacin was injected into the anterior chamber. The wound was checked and found to be water tight. The patient tolerated the procedure well without complications. MISBAH MERCADO MD Mar 06, 2022 10:09
--- NOTE | 2022-03-06 13:05 | Anesthesia-General Post-Op ---
MAC Patient Condition Mental Status/LOC: Same as Preop Cardiovascular: Satisfactory Nausea/Vomiting: Absent Respiratory: Satisfactory Pain: Controlled Complications: Absent Post Op Complications Complications None Follow Up Care/Instructions Patient Instructions None needed. Anesthesiology Discharge Order Discharge Order Patient is doing well, no complaints, stable vital signs, no apparent adverse anesthesia problems. No complications reported per nursing. VICKI ALMEIDA CRNA Mar 06, 2022 13:05
== END 2022-03-06 10:10 | disposition home or self-care (01) ==
LOC: SDC 08:55
PROVIDERS: ATTEND Specialist
DX: H25.9 Unspecified age-related cataract (principal); F17.210 Nicotine dependence, cigarettes, uncomplicated
CPT/HCPCS: 66984; V2632

== ENCOUNTER 2022-12-04 21:39 | Emergency (ER) | payer MEDICAID ==
[~2022-12-04] VITALS: Ht 160 cm; Wt 72.6 kg
[2022-12-04 22:11] LABS: BASOPHILS # (AUTO) 0.1 10^3/uL (0.0-0.1); BASOPHILS % (AUTO) 1 % (0-10); EOSINOPHILS # (AUTO) 0.1 10^3/uL (0.0-0.3); EOSINOPHILS % (AUTO) 1 % (0-10); HEMATOCRIT 45 % (35-52); HEMOGLOBIN 14.8 g/dL (11.5-16.0); LYMPHOCYTES # (AUTO) 2.4 10^3/uL (1.0-4.0); LYMPHOCYTES % (AUTO) 40 % (12-44); MEAN CORPUSCULAR HEMOGLOBIN 27 pg (25-34); MEAN CORPUSCULAR HGB CONC 33 g/dL (32-36); MEAN CORPUSCULAR VOLUME 83 fL (80-99); MEAN PLATELET VOLUME 10.3 fL (9.0-12.2); MONOCYTES # (AUTO) 0.5 10^3/uL (0.0-1.0); MONOCYTES % (AUTO) 9 % (0-12); NEUTROPHILS # (AUTO) 2.9 10^3/uL (1.8-7.8); NEUTROPHILS % (AUTO) 49 % (42-75); PLATELET COUNT 199 10^3/uL (130-400)
[2022-12-04 22:15] LABS: ALBUMIN 3.6 GM/DL (3.2-4.5); POTASSIUM 4.4 MMOL/L (3.6-5.0)
[2022-12-04] MEDS ORDERED: LACTATED RINGERS 1,000 ML 1,000 ML IV ONE (22:15)
[2022-12-04 22:17] LABS: CALCIUM 8.5 MG/DL (8.5-10.1)
[2022-12-04 22:20] LABS: BILIRUBIN,TOTAL 0.2 MG/DL (0.1-1.0)
[2022-12-04 22:21] LABS: CREATININE SERUM 0.77 MG/DL (0.60-1.30)
[2022-12-04 22:24] LABS: MAGNESIUM 1.9 MG/DL (1.6-2.4)
--- NOTE | 2022-12-04 22:26 | ED General ---
General Chief Complaint: Cough/Cold/Flu Symptoms Stated Complaint: FEVER, ABD PAIN, HEADACHE, CHILLS, SOB, DIAHHREA Nursing Triage Note: pt ambulatory to room. states she has been sick approx 5 days. states she has had fever, abd pain, headache, chills, and sob. pt reports a hx of chronic migraines, copd, and aortic aneurysm. pt is A&Ox4, speech normal on arrival. Source of Information: Patient History of Present Illness Date Seen by Provider: Dec 04, 2022 Time Seen by Provider: 21:53 Initial Comments PT ARRIVES VIA POV FROM HOME PT WITH A MULTITUDE OF COMPLAINTS: -NON-PRODUCTIVE COUGH -NASAL CONGESTION AND CLEAR DRAINAGE -SHORTNESS OF BREATH -HEADACHE -SUBJECTIVE FEVER -BODY ACHES -DIARRHEA X 2 DAYS, 4-5 STOOLS TODAY. NO BLACK/BLOODY/TARRY STOOLS -ABDOMINAL FULLNESS/PRESSURE NO NAUSEA/VOMITING HAS NOT TAKEN ANYTHING FOR SYMPTOMS SYMPTOMS NO DIFFERENT TONIGHT ( WEDNESDAY NIGHT ) + SICK CONTACTS--FRIEND IS HERE WITH PNEUMONIA, ANOTHER PERSON IN HER APARTMENT COMPLEX ALSO ILL WITH SAME, AND SHE HAS BEEN AROUND HIM THIS WEEK. PCP: SLIME, RENE PATRICIO Allergies and Home Medications Allergies Coded Allergies: Sulfa (Sulfonamide Antibiotics) (Unverified Allergy, Severe, Itching, 02/18/22) Penicillins (Unverified Allergy, Mild, 11/28/08) Patient Home Medication List Atorvastatin Calcium (Atorvastatin Calcium) 20 Mg Tablet, 20 MG PO DAILY, (Reported) Entered as Reported by: NOHEMI MCCALL on 02/18/22 1635 Metoprolol Succinate (Toprol Xl) 25 Mg Tab.er.24h, 25 MG PO DAILY, (Reported) Entered as Reported by: NOHEMI MCCALL on 02/18/22 1635 Review of Systems Review of Systems Constitutional: see HPI, fever, malaise, weakness EENTM: nose congestion Respiratory: see HPI, cough, short of breath Cardiovascular: no symptoms reported; No chest pain Gastrointestinal: see HPI, abdominal pain, diarrhea; No nausea, No vomiting Genitourinary: no symptoms reported Musculoskeletal: see HPI (BODY ACHES) Skin: no symptoms reported Psychiatric/Neurological: See HPI, Headache Hematologic/Lymphatic: No Symptoms Reported Immunological/Allergic: no symptoms reported Past Feobguv-Xacfcu-Dllsgx Hx Immunizations Up To Date First/Initial COVID19 Vaccinat: 2020 Second COVID19 Vaccination [place]: 2020 Third COVID19 Vaccination Date: 2020 Past Medical History Surgeries: Yes Appendectomy, Hysterectomy, Orthopedic Respiratory: Yes Chronic Bronchitis, COPD Cardiac: Yes (THORACIC AORTIC ANEURYSM-NO SURGERY) Aneurysm, High Cholesterol Neurological: Yes Headaches /Migraines Reproductive Disorders: No [employer] History: Menopausal Genitourinary: No Gastrointestinal: Yes (DIARRHEA) Chronic Diarrhea Musculoskeletal: Yes (CHARCOT/DORIS/TOOTH DZ) Arthritis Endocrine: No HEENT: Yes (ONLY HAS A FEW TEETH WITH EXTENSIVE DECAY) Cancer: No Psychosocial: Yes Anxiety Integumentary: Yes (CELLULITIS OF LEGS) Blood Disorders: No Family Medical History SOCIAL HISTORY: -SMOKES 1 PPD -DENIES DRUG USE -ETOH--RARELY USES PAST SURGICAL HISTORY: -BILATERAL CATARACT SURGERY 02/2022 -RIGHT ROTATOR CUFF REPAIR 10/2012 -LEFT KNEE ARTHROSCOPY X 2 ECHOCARDIOGRAM 12/[address] BHATIA: -NO WALL MOTION ABNORMALITIES -MILD AORTIC VALVE REGURGITATION -EF 55-65% STRESS TEST 01/20/[address] BHATIA: 1. Patient tolerated Lexiscan well 2. Breast attenuation with decreased uptake at the base of the anterior wall with mild reversibility, most probably secondary to breast attenuation, no significant ischemia or infarction on SPECT images were noted 3. Normal left ventricular size with normal contractility, ejection fraction 58% Physical Exam Vital Signs Vital Signs - First Documented 12/04/22 22:03 Temp 37.5 Pulse 84 Resp 20 B/P (MAP) 125/76 (92) Pulse Ox 94 Capillary Refill : Height, Weight, BMI Height: 5'3.00" Weight: 160lbs. oz. [id number]; 28.00 BMI Method:Stated Progress/Results/Core Measures Suspected Sepsis SIRS Temperature: Pulse: 84 Respiratory Rate: 20 Laboratory Tests 12/04/22 21:54: White Blood Count 6.0 Blood Pressure 125 /76 Mean: 92 Laboratory Tests 12/04/22 21:54: Creatinine 0.77, Platelet Count 199, Total Bilirubin 0.2 Results/Orders Lab Results Laboratory Tests Test 12/04/22 21:54 12/04/22 21:55 12/04/22 22:09 Range/Units White Blood Count 6.0 4.3-11.0 10^3/uL Red Blood Count 5.45 H 3.80-5.11 10^6/uL Hemoglobin 14.8 11.5-16.0 g/dL Hematocrit 45 35-52 % Mean Corpuscular Volume 83 80-99 fL Mean Corpuscular Hemoglobin 27 25-34 pg Mean Corpuscular Hemoglobin Concent 33 32-36 g/dL Red Cell Distribution Width 15.7 H 10.0-14.5 % Platelet Count 199 130-400 10^3/uL Mean Platelet Volume 10.3 9.0-12.2 fL Immature Granulocyte % (Auto) 0 % Neutrophils (%) (Auto) 49 42-75 % Lymphocytes (%) (Auto) 40 12-44 % Monocytes (%) (Auto) 9 0-12 % Eosinophils (%) (Auto) 1 0-10 % Basophils (%) (Auto) 1 0-10 % Neutrophils # (Auto) 2.9 1.8-7.8 10^3/uL Lymphocytes # (Auto) 2.4 1.0-4.0 10^3/uL Monocytes # (Auto) 0.5 0.0-1.0 10^3/uL Eosinophils # (Auto) 0.1 0.0-0.3 10^3/uL Basophils # (Auto) 0.1 0.0-0.1 10^3/uL Immature Granulocyte # (Auto) 0.0 0.0-0.1 10^3/uL Sodium Level 138 135-145 MMOL/L Potassium Level 4.4 3.6-5.0 MMOL/L Chloride Level 107 98-107 MMOL/L Carbon Dioxide Level 22 21-32 MMOL/L Anion Gap 9 5-14 MMOL/L Blood Urea Nitrogen 19 H 7-18 MG/DL Creatinine 0.77 0.60-1.30 MG/DL Estimat Glomerular Filtration Rate 84 BUN/Creatinine Ratio 25 Glucose Level 96 70-105 MG/DL Calcium Level 8.5 8.5-10.1 MG/DL Corrected Calcium 8.8 8.5-10.1 MG/DL Magnesium Level 1.9 1.6-2.4 MG/DL Total Bilirubin 0.2 0.1-1.0 MG/DL Aspartate Amino Transf (AST/SGOT) 25 5-34 U/L Alanine Aminotransferase (ALT/SGPT) 20 0-55 U/L Alkaline Phosphatase 103 40-136 U/L Total Protein 7.0 6.4-8.2 GM/DL Albumin 3.6 3.2-4.5 GM/DL Amylase Level 46 25-125 U/L Lipase 63 8-78 U/L Influenza Type A (RT-PCR) Not Detected Not Detecte Influenza Type B (RT-PCR) Not Detected Not Detecte SARS-CoV-2 RNA (RT-PCR) Not Detected Not Detecte Urine Color YELLOW Urine Clarity CLEAR Urine pH 5.0 5-9 Urine Specific [place] 1.025 H 1.016-1.022 Urine Protein 1+ H NEGATIVE Urine Glucose (UA) NEGATIVE NEGATIVE Urine Ketones NEGATIVE NEGATIVE Urine Nitrite NEGATIVE NEGATIVE Urine Bilirubin NEGATIVE NEGATIVE Urine Urobilinogen 0.2 < = 1.0 MG/DL Urine Leukocyte Esterase NEGATIVE NEGATIVE Urine RBC (Auto) 3+ H NEGATIVE Urine RBC 2-5 H /HPF Urine WBC 0-2 /HPF Urine Squamous Epithelial Cells 2-5 /HPF Urine Crystals PRESENT H /LPF Urine Amorphous Sediment MOD [place] URATES H /LPF Urine Bacteria MODERATE H /HPF Urine Casts NONE /LPF Urine Mucus NEGATIVE /LPF Urine Other /HPF Urine Culture Indicated YES My Orders Orders - OVIDIO LR DO Covid 19 Inhouse Test (12/04/22 21:58) Influenza A And B By Pcr (12/04/22 21:58) Ed Iv/Invasive Line Start (12/04/22 22:03) Monitor-Rhythm Ecg Trace Only (12/04/22 22:03) Amylase (12/04/22 22:03) Cbc And Automated Diff (12/04/22 22:03) Comprehensive Metabolic Panel (12/04/22 22:03) Lipase (12/04/22 22:03) Magnesium (12/04/22 22:03) Ua Culture If Indicated (12/04/22 22:03) Ed Iv/Invasive Line Start (12/04/22 22:03) Lactated Ringers 1,000 Ml (Lactated Ring (12/04/22 22:15) Chest 1 View, Ap/Pa Only (12/04/22 22:20) Urine Culture (12/04/22 22:09) Ketorolac Injection (Ketorolac Injection (12/04/22 23:00) Ceftriaxone Iv/Im (Ceftriaxone Iv/Im) (12/04/22 23:00) Medications Given in ED Current Medications Medications Dose Ordered Sig/Kim Route Start Time Stop Time Status Last Admin Dose Admin Lactated Ringer's 1,000 ml @ 0 mls/hr Q0M ONCE IV 12/04/22 22:15 12/04/22 22:16 DC 12/04/22 22:25 999 MLS/HR Vital Signs/I&O 12/04/22 22:03 Temp 37.5 Pulse 84 Resp 20 B/P (MAP) 125/76 (92) Pulse Ox 94 Capillary Refill : Blood Pressure Mean: 92 Departure Impression Primary Impression: Upper respiratory infection Additional Impressions: UTI (urinary tract infection) Ventral hernia Disposition: HOME, SELF-CARE Condition: Stable Departure-Patient Inst. Decision time for Depature: 22:55 Referrals: [facility] (PCP/Family) Primary Care Physician Patient Instructions: Abdominal wall hernias, Upper Respiratory Infection ED, U rinary Tract Infection, Adult ED Add. Discharge Instructions: CLEAR LIQUIDS--WATER, BROTH, JELLO, GATORADE BRATS DIET--BANANAS, RICE, APPLESAUCE, TOAST, SALTINES TYLENOL AND MOTRIN FOR PAIN OR FEVER FOLLOW UP WITH YOUR DR IN 3-4 DAYS FOR FURTHER CARE, RETURN TO ER IF SYMPTOMS WORSEN All discharge instructions reviewed with patient and/or family. Voiced un derstanding. Scripts Albuterol Sulfate (Ventolin Hfa) 90 Mcg Hfa.aer.ad 2 PUFF IH Q4H, #1 EA 1 PUFF = 90 MCG Prov: OVIDIO LR DO 12/04/22 Fluticasone Propionate (Flonase Allergy Relief) 50 Mcg/Actuation [place].susp 2 SPRAY NS DAILY, #1 EACH 2 SPRAYS PER NOSTRIL DAILY X 2 DAYS THEN 1 SPRAY DAILY Prov: OVIDIO LR DO 12/04/22 Guaifenesin/Dextromethorphan (Mucinex Dm ER 1,200-60 mg Tab) 1,200 Mg-60 Mg Tbmp.12hr 1 EACH PO BID, #20 EA Prov: OVIDIO LR DO 12/04/22 Benzonatate (TESSALON PERLES) 100 Mg Capsule 200 MG PO TID, #30 CAP Prov: OVIDIO LR DO 12/04/22 Cefdinir (Cefdinir) 300 Mg Capsule 300 MG PO BID, #20 CAP Prov: OVIDIO LR DO 12/04/22 Hyoscyamine Sulfate (Levsin-Sl) 0.125 Mg Tab.subl 0.25 MG SL Q4H, #10 TAB Prov: OVIDIO LR DO 12/04/22 L. Acidophilus/Pectin, [place] (Acidophilus Capsule) 7.5 Mg (30 Million Cell)-100 Mg Capsule 2 EACH PO QID, #40 CAP Prov: OVIDIO LR DO 12/04/22 OVIDIO LR DO Dec 04, 2022 22:26
[2022-12-04 22:27] LABS: BILIRUBIN,URINE NEGATIVE (NEGATIVE); CLARITY,URINE CLEAR; COLOR,URINE YELLOW; GLUCOSE, URINE (UA) NEGATIVE (NEGATIVE); KETONES,URINE NEGATIVE (NEGATIVE); LEUKOCYTE ESTERASE ,URINE NEGATIVE (NEGATIVE); NITRITE,URINE NEGATIVE (NEGATIVE); PROTEIN,URINE 1+ (NEGATIVE)
[2022-12-04 22:28] LABS: AMORPHOUS SEDIMENT,UR MOD AMOR URATES /LPF; BACTERIA,URINE MODERATE /HPF; WBC,URINE 0-2 /HPF
[2022-12-04] MEDS ORDERED: cefTRIAXone IV/IM 1,000 MG in NS (IVPB) 50 ML 50 ML IV ONE (23:00)
[2022-12-04] MEDS ORDERED: KETOROLAC INJ 30 MG/ML VIAL IVP ONE (23:00)
[2022-12-04] MEDS ORDERED: L. A1CAP11 PO (23:03)
[2022-12-04] MEDS ORDERED: FLUT9.9S NS (23:03)
[2022-12-04] MEDS ORDERED: CEFD300C3 PO (23:03)
[2022-12-04] MEDS ORDERED: ALBU8.5H6 IH (23:03)
[2022-12-04] MEDS ORDERED: HYOS0.1283 SL (23:03)
[2022-12-04] MEDS ORDERED: GUAI1TBM19 PO (23:03)
[2022-12-04] MEDS ORDERED: BENZ100C18 PO (23:03)
[2022-12-04] MEDS ORDERED: cefTRIAXone 1,000 MG VIAL IV/IM ONE (23:11)
[2022-12-04 23:39] VITALS: BP 139/70
--- NOTE | 2022-12-05 07:33 | Diagnostic Imaging Report ---
INDICATION: Cough and shortness of breath. Comparison is made with prior exam of 09/05/2022. FINDINGS: The heart size is normal. There is some bibasilar discoid atelectasis and/or pneumonitis. No pleural effusion or pneumothorax. Mediastinum is unremarkable. IMPRESSION: Minimal discoid atelectasis and/or pneumonitis in the lung bases. Dictated by: Dictated on workstation # [id number]
== END 2022-12-04 23:39 | disposition home or self-care (01) ==
LOC: EDUNIT# 21:39 → ER 21:42
DX: J06.9 Acute upper respiratory infection, unspecified (principal); N39.0 Urinary tract infection, site not specified; K43.9 Ventral hernia without obstruction or gangrene; F17.210 Nicotine dependence, cigarettes, uncomplicated; Z90.49 Acquired absence of other specified parts of digestive tract; Z88.0 Allergy status to penicillin; Z88.2 Allergy status to sulfonamides
CPT/HCPCS: 36415; 71045; 80053; 81000; 82150; 83690; 83735; 85025; 87088; 87636; 93041; 96361; 96365; 96375

== ENCOUNTER 2022-12-08 01:59 | Emergency (ER) | payer MEDICAID ==
[~2022-12-08 01:59] MED LIST changes: +ALBU8.5H6 IH; +BENZ100C18 PO; +CEFD300C3 PO; +FLUT9.9S NS; +GUAI1TBM19 PO; +HYOS0.1283 SL; +L. A1CAP11 PO
--- NOTE | 2022-12-08 02:14 | ED Cough/URI ---
General Chief Complaint: Respiratory Problems Stated Complaint: PANIC ATTACH,SOA Source: patient Exam Limitations: no limitations History of Present Illness Date Seen by Provider: Dec 08, 2022 Time Seen by Provider: 02:02 Initial Comments 67-year-old female presents to the emergency department today for shortness of breath. Symptoms started about 30 minutes prior to arrival and woke her from sleep. She states she woke up and "panic mode." She has had this happen in the past several times with panic attacks. She also has COPD and states she got worried and could not breathe. She wears as needed oxygen at home and put it on which did seem to help after a few minutes. Notably she was seen here 3 days ago for similar symptoms. He does endorse some pressure, fullness in her upper abdomen which she had at the time of that presentation as well. Denies any fevers or chills. She has had a productive cough and was given a myriad of medications at her last ER visit including cefdinir and several inhalers. She has follow-up with her primary doctor on . COVID and flu test were nega tive at that time. All other systems reviewed and negative except documented per HPI. Voice recognition software was used to help create this chart Allergies and Home Medications Allergies Coded Allergies: Sulfa (Sulfonamide Antibiotics) (Unverified Allergy, Severe, Itching, 02/18/22) Penicillins (Unverified Allergy, Mild, 11/28/08) Patient Home Medication List Home Medication List Reviewed: Yes Albuterol Sulfate (Ventolin Hfa) 90 Mcg Hfa.aer.ad, 2 PUFF IH Q4H Prescribed by: OVIDIO LR on 12/04/222302 Atorvastatin Calcium (Atorvastatin Calcium) 20 Mg Tablet, 20 MG PO DAILY, (Reported) Entered as Reported by: NOHEMI MCCALL on 02/18/22 163 Benzonatate (Tessalon Perles) 100 Mg Capsule, 200 MG PO TID Prescribed by: OVIDIO LR on 12/04/222302 Cefdinir (Cefdinir) 300 Mg Capsule, 300 MG PO BID Prescribed by: OVIDIO LR on 12/04/222302 Fluticasone Propionate (Flonase Allergy Relief) 50 Mcg/Actuation [place].susp, 2 SPRAY NS DAILY Prescribed by: OVIDIO LR on 12/04/222302 Guaifenesin/Dextromethorphan (Mucinex Dm ER 1,200-60 mg Tab) 1,200 Mg-60 Mg Tbmp.12hr, 1 EACH PO BID Prescribed by: OVIDIO LR on 12/04/222302 Hyoscyamine Sulfate (Levsin-Sl) 0.125 Mg Tab.subl, 0.25 MG SL Q4H Prescribed by: OVIDIO LR on 12/04/222302 L. Acidophilus/Pectin, [place] (Acidophilus Capsule) 7.5 Mg (30 Million Cell)-100 Mg Capsule, 2 EACH PO QID Prescribed by: OVIDIO LR on 12/04/222302 Metoprolol Succinate (Toprol Xl) 25 Mg Tab.er.24h, 25 MG PO DAILY, (Reported) Entered as Reported by: NOHEMI MCCALL on 02/18/22 1635 Review of Systems Review of Systems Constitutional: see HPI Past Gdiywqd-Jmoygd-Rtnqcj Hx Patient Social History Tobacco Use?: Yes Use of E-Cig and/or Vaping dev: No Substance use?: No Alcohol Use?: No Immunizations Up To Date First/Initial COVID19 Vaccinat: 2020 Second COVID19 Vaccination [place]: 2020 Third COVID19 Vaccination Date: 2020 Past Medical History Surgeries: Yes Appendectomy, Hysterectomy, Orthopedic Respiratory: Yes Chronic Bronchitis, COPD Cardiac: Yes (THORACIC AORTIC ANEURYSM-NO SURGERY) Aneurysm, High Cholesterol Neurological: Yes Headaches /Migraines Reproductive Disorders: No [employer] History: Menopausal Genitourinary: No Gastrointestinal: Yes (DIARRHEA) Chronic Diarrhea Musculoskeletal: Yes (CHARCOT/DORIS/TOOTH DZ) Arthritis Endocrine: No HEENT: Yes (ONLY HAS A FEW TEETH WITH EXTENSIVE DECAY) Cancer: No Psychosocial: Yes Anxiety Integumentary: Yes (CELLULITIS OF LEGS) Blood Disorders: No Family Medical History SOCIAL HISTORY: -SMOKES 1 PPD -DENIES DRUG USE -ETOH--RARELY USES PAST SURGICAL HISTORY: -BILATERAL CATARACT SURGERY 02/2022 -RIGHT ROTATOR CUFF REPAIR 10/2012 -LEFT KNEE ARTHROSCOPY X 2 ECHOCARDIOGRAM 12/[address] BHATIA: -NO WALL MOTION ABNORMALITIES -MILD AORTIC VALVE REGURGITATION -EF 55-65% STRESS TEST 01/20/[address] BHATIA: 1. Patient tolerated Lexiscan well 2. Breast attenuation with decreased uptake at the base of the anterior wall with mild reversibility, most probably secondary to breast attenuation, no significant ischemia or infarction on SPECT images were noted 3. Normal left ventricular size with normal contractility, ejection fraction 58% Physical Exam Vital Signs - First Documented 12/08/22 02:02 O2 Delivery Nasal Cannula O2 Flow Rate 2.00 Capillary Refill : Height: 5'3.00" Weight: 160lbs. oz. [id number]; 28.00 BMI Method:Stated General Appearance: WD/WN, no apparent distress HEENT: normal ENT inspection, pharynx normal Neck: non-tender, supple Respiratory: chest non-tender, no respiratory distress, other (Patient is hyperventilating. She does have slight expiratory wheezes bilaterally that are sporadic) Cardiovascular: regular rate, rhythm, no murmur Gastrointestinal: normal bowel sounds, non tender, soft, no organomegaly Neurologic/Psychiatric: alert, normal mood/affect, oriented x 3 Skin: normal color, warm/dry Progress/Results/Core Measures Suspected Sepsis SIRS Temperature: Pulse: Respiratory Rate: Blood Pressure / Mean: Results/Orders My Orders Orders - REZA ESCUDERO DO Ipratropium/Albuterol Inh Soln (Ipratrop (12/08/22 02:15) Svn Small Volume Nebulizer (12/08/22 02:09) Hydroxyzine Oral (Hydroxyzine Oral) (12/08/22 02:15) Medications Given in ED Current Medications Medications Dose Ordered Sig/Kim Route Start Time Stop Time Status Last Admin Dose Admin Albuterol/ Ipratropium 3 ml ONCE ONCE INH 12/08/22 02:15 12/08/22 02:16 DC 12/08/22 02:18 3 ML Hydroxyzine Pamoate 50 mg ONCE ONCE PO 12/08/22 02:15 12/08/22 02:16 DC 12/08/22 02:18 50 MG Vital Signs/I&O 12/08/22 02:02 O2 Delivery Nasal Cannula O2 Flow Rate 2.00 Capillary Refill : Departure Communication (Admissions) Patient is hemodynamically stable. Her oxygen saturation is 98% on room air. She is speaking in full sentences and feeling much better after DuoNeb cristel tment. She was hyperventilating on arrival, only minimal wheezing. I think a lot of her symptoms related to anxiety this morning and she states that she likely agrees that she has had this happen to her several times in the past. Consideration for possible chest x-ray however she had 1 3 days ago and is on antibiotics, cefdinir, so I do not think this is warranted at this time. Her heart rate is normal, blood pressure is normal as well. Her respiratory rate is back to normal after breathing treatment. She be discharged home in stable condition with supportive care Impression Primary Impression: Dyspnea Qualified Codes: R06.00 - Dyspnea, unspecified Disposition: HOME, SELF-CARE Condition: Stable Departure-Patient Inst. Referrals: [facility] [place] (PCP/Family) Primary Care Physician Patient Instructions: Shortness of Breath, Adult ED Add. Discharge Instructions: I think a lot of her symptoms were related to anxiety or panic this morning. Recommended continuing all previously prescribed medications. Emergency department for any severe concerns All discharge instructions reviewed with patient and/or family. Voiced understanding. REZA ESCUDERO DO Dec 08, 2022 02:14
[2022-12-08] MEDS ORDERED: RT-Ipratropium/Albuterol NEB 3 ML VIAL INH ONE (02:15)
[2022-12-08] MEDS ORDERED: hydrOXYzine 25 MG CAPSULE PO ONE (02:15)
[2022-12-08 03:05] VITALS: BP 128/69
== END 2022-12-08 03:10 | disposition home or self-care (01) ==
LOC: EDUNIT# 01:59 → ER 02:00
DX: R06.00 Dyspnea, unspecified (principal); F17.210 Nicotine dependence, cigarettes, uncomplicated
CPT/HCPCS: 99283